=== PATIENT | female | born 1985 | race American Indian/Alaskan Native ===

== ENCOUNTER 2018-02-27 18:28 | Emergency (ER) | payer MEDICAID, SELFPAY ==
[2018-02-27 18:40] VITALS: BMI 31.0
[2018-02-27] MEDS ORDERED: Lactated Ringer's 1,000 ML IV SCH (19:00)
[2018-02-27 19:32] LABS: HEMOGLOBIN 10.3 g/dL (12.0-16.0); MEAN CELL VOLUME 99.9 fl (81.0-99.0); MEAN CORPUSCULAR HEMOGLOBIN 32.6 pg (27.0-31.0); MEAN CORPUSCULAR HGB CONC 32.6 g/dL (33.0-37.0); RBC 3.15 Mil/uL (3.80-5.20); RED CELL DISTRIBUTION WIDTH 16.2 % (11.5-14.5); WHITE BLOOD COUNT 7.8 K/uL (4.8-10.8)
[2018-02-27 19:36] LABS: SQUAMOUS EPITHIAL 5 /hpf (0-5); URINE BACTERIA RARE (<OCC); URINE BILIRUBIN NEGATIVE (NEGATIVE); URINE BLOOD NEGATIVE (NEGATIVE); URINE CLARITY SLIGHTY-CLOUDY (Clear); URINE COLOR YELLOW (YELLOW); URINE GLUCOSE (UA) NEG (Normal); URINE LEUKOCYTE ESTERASE NEG Leu/uL (Negative); URINE PROTEIN 30 mg/dL (NEGATIVE); URINE UROBILINOGEN 0.2-1.0 mg/dL (0.2-1.0)
[2018-02-27 19:42] LABS: ALB/GLOB RATIO 1.1 (1.0-2.1); ALBUMIN 3.5 g/dL (3.5-5.0); ALT/SGPT 16 U/L (9-52); AST/SGOT 19 U/L (14-36); BLOOD UREA NITROGEN 7 mg/dl (7-17); CALCIUM 8.9 mg/dL (8.4-10.2); GFR NON-AFRICAN AMERICAN > 60; URIC ACID 4.4 mg/Dl (2.2-7.5)
[2018-02-27 20:23] LABS: CREATININE, RANDOM URINE 151.2 mg/dL
[2018-02-28 05:01] VITALS: BP 131/64; PULSE 106; RESP 18; TEMP 97.7; O2SAT 99
== END 2018-02-27 23:30 | disposition home or self-care (01) ==
LOC: H.EROB2 18:28 → H.EROB 18:39 → H.EROB2 23:30
DX: O13.3 Gestational [pregnancy-induced] hypertension without significant proteinuria, third trimester (principal); Z3A.38 38 weeks gestation of pregnancy; Z87.59 Personal history of other complications of pregnancy, childbirth and the puerperium